=== PATIENT | male | born 1995 | race Caucasian/White ===

== ENCOUNTER 2018-01-01 09:10 | Emergency (ER) | payer OTHER ==
[~2018-01-01] VITALS: Ht 172.7 cm; Wt 72.7 kg
[2018-01-01 09:32] VITALS: BP 118/72; PULSE 102; TEMP 98.4
[2018-01-01] MEDS ORDERED: PROAIR HFA0.09 MG/AC IH (10:18)
[2018-01-01] MEDS ORDERED: PREDNISONE20 MG PO (10:18)
[2018-01-01] MEDS ORDERED: DOXYCYCLINE 10100 MG PO (10:18)
[2018-01-01] MEDS ORDERED: ZYRTEC 10MG10 MG PO (10:43)
[2018-01-01] MEDS ORDERED: IBU800 M1 PO (10:44)
[2018-01-01] MEDS ORDERED: PROVENTIL0.09 MG/A1 IH (10:44)
[2018-01-01] MEDS ORDERED: SUDAFED30 MG PO (10:44)
== END 2018-01-01 10:48 | disposition home or self-care (01) ==
LOC: COL.ER 09:10
DX: J40 Bronchitis, not specified as acute or chronic (principal); F17.210 Nicotine dependence, cigarettes, uncomplicated
CPT/HCPCS: J7512